=== PATIENT | male | born 1935 | race Caucasian/White ===

== ENCOUNTER 2018-04-18 19:43 | Emergency (ER) | payer MEDICARE, OTHER ==
[~2018-04-18] VITALS: Ht 182.9 cm; Wt 88.6 kg
[~2018-04-18 19:43] MED LIST: ACET-784 PO; ASPI81 PO; DSS100 PO; MOM30 PO; MORP2CAR IM; PANT40TA25 PO; PERCT PO; TAMS0.4C32 PO
[2018-04-18] MEDS ORDERED: OMEP20 PO (20:34)
[2018-04-18] MEDS ORDERED: IBUP-2070 PO (20:34)
[2018-04-18] MEDS ORDERED: FINA5TAB41 PO (20:34)
[2018-04-18 21:36] LABS: APPEARANCE,URINE TURBID (CLEAR); GLUCOSE, URINE (UA) NEGATIVE (NEGATIVE); KETONES,URINE TRACE mg/dL (NEGATIVE); LEUKOCYTE ESTERASE ,URINE LARGE (NEGATIVE); NITRATE,URINE NEGATIVE (NEGATIVE); OCCULT BLOOD,URINE MODERATE (NEGATIVE); PH,URINE 7.5 (5.0-8.0); PROTEIN,URINE SEE CONFIRM (NEGATIVE)
[2018-04-18 22:06] LABS: BILIRUBIN,URINE PRELIM. POSITIVE (NEGATIVE)
[2018-04-18 22:08] LABS: SULFOSALICYLIC ACID,URINE 4+ (Negative)
[2018-04-18 22:09] LABS: BACTERIA,URINE Many /HPF (None Seen); WBC,URINE >100 /HPF (0-5)
[2018-04-18 22:11] LABS: SQUAMOUS EPITHELIAL CELL,UR Rare /LPF (None Seen); TRIPLE PHOSPHATE CRYSTAL,UR Moderate /LPF (None Seen)
[2018-04-18] MEDS ORDERED: LIDOCAINE/PF 1% 2 ML VIAL IM ONE (22:15)
[2018-04-18] MEDS ORDERED: CefTRIAXone SODIUM 1 GM/VIAL IM ONE (22:15)
[2018-04-19] VITALS: BP 124/74
== END 2018-04-19 00:20 | disposition home or self-care (01) ==
LOC: EMS 19:47
DX: N39.0 Urinary tract infection, site not specified (principal); I11.0 Hypertensive heart disease with heart failure; I50.9 Heart failure, unspecified; Z87.891 Personal history of nicotine dependence; Z96.643 Presence of artificial hip joint, bilateral
CPT/HCPCS: 51705; 81001; 87086; 96372; 99284; J0696; J3490

== ENCOUNTER 2018-04-21 05:58 | Emergency (ER) | payer MEDICARE, OTHER ==
[~2018-04-21] VITALS: Ht 188 cm; Wt 86.4 kg
[~2018-04-21 05:58] MED LIST changes: -ACET-784 PO; -ASPI81 PO; -DSS100 PO; +FINA5TAB41 PO; +IBUP-2070 PO; -MOM30 PO; -MORP2CAR IM; +OMEP20 PO; -PANT40TA25 PO; -PERCT PO
[2018-04-21 06:09] VITALS: BP 110/76
[2018-04-21] MEDS ORDERED: LEVO250 PO (06:19)
== END 2018-04-21 07:15 | disposition home or self-care (01) ==
LOC: EMS 05:58
DX: T83.9XXA Unspecified complication of genitourinary prosthetic device, implant and graft, initial encounter (principal); I48.91 Unspecified atrial fibrillation; I11.0 Hypertensive heart disease with heart failure; I50.9 Heart failure, unspecified; E78.5 Hyperlipidemia, unspecified; D69.6 Thrombocytopenia, unspecified; Z87.891 Personal history of nicotine dependence; Z79.899 Other long term (current) drug therapy; Z96.643 Presence of artificial hip joint, bilateral
CPT/HCPCS: 99283

== ENCOUNTER 2018-05-07 08:09 | Emergency (ER) | payer MEDICARE, OTHER ==
[~2018-05-07] VITALS: Ht 188 cm; Wt 86.4 kg
[~2018-05-07 08:09] MED LIST changes: +LEVO250 PO
[2018-05-07] MEDS ORDERED: METF-960 PO (08:28)
[2018-05-07] MEDS ORDERED: HYDR-4061 PO (08:33)
[2018-05-07] MEDS ORDERED: METO-558 PO (08:33)
[2018-05-07] MEDS ORDERED: DOCU250C91 PO (08:33)
[2018-05-07] MEDS ORDERED: SENN-175 PO (08:33)
[2018-05-07 09:22] LABS: BASOPHILS % (AUTO) 1.3 % (0.0-2.0); EOSINOPHILS % (AUTO) 3.9 % (1.0-6.0); HEMATOCRIT 36.2 % (41-53); HEMOGLOBIN 12.4 g/dL (13.5-17.5); LYMPHOCYTES # (AUTO) 0.8 K/uL (1.0-4.8); LYMPHOCYTES % (AUTO) 25.8 % (22.0-44.0); MEAN CORPUSCULAR HEMOGLOBIN 32.6 pg (26.0-34.0); MEAN CORPUSCULAR HGB CONC 34.4 G/dL (31.0-37.0); MEAN CORPUSCULAR VOLUME 95 fL (80-100); MONOCYTES # (AUTO) 0.3 K/uL (0.1-1.0); MONOCYTES % (AUTO) 8.4 % (2.0-9.0); NEUTROPHILS % (AUTO) 60.6 % (40.0-70.0); PLATELET COUNT (AUTO) 92 K/uL (150-450); RED BLOOD CELL COUNT(AUTO) 3.81 MIL/uL (4.50-5.90); RED CELL DISTRIBUTION WIDTH 14.8 % (11.5-14.5)
[2018-05-07 09:22] LABS: APPEARANCE,URINE CLEAR (CLEAR); BILIRUBIN,URINE NEGATIVE (NEGATIVE); GLUCOSE, URINE (UA) NEGATIVE (NEGATIVE); KETONES,URINE NEGATIVE (NEGATIVE); LEUKOCYTE ESTERASE ,URINE MODERATE (NEGATIVE); NITRATE,URINE NEGATIVE (NEGATIVE); OCCULT BLOOD,URINE SMALL (NEGATIVE); PROTEIN,URINE NEGATIVE (NEGATIVE); UROBILINOGEN,URINE 0.2 mg/dL (<=1.0)
[2018-05-07 09:31] LABS: ANION GAP 6 mmol/L (8-16); CALCIUM, TOTAL 8.5 mg/dL (8.8-10.5); CARBON DIOXIDE 28 mmol/L (22-29); CHLORIDE 105 mmol/L (98-107); CREATININE 0.79 mg/dL (0.60-1.30); GLUCOSE,RANDOM 84 mg/dL (70-110); POTASSIUM 4.2 mmol/L (3.5-5.1); SODIUM SERUM 139 mmol/L (136-145); UREA NITROGEN, BLOOD 17 mg/dL (7-18)
[2018-05-07 09:34] LABS: GLOMERULAR FILTR. RATE CALC > 60 mL/min (>60)
[2018-05-07 09:37] LABS: ALANINE AMINOTRANSFERASE 16 U/L (12-78); ALBUMIN 3.3 g/dL (3.4-5.0); ALKALINE PHOSPHATASE 55 U/L (46-116); ASPARTATE AMINOTRANSFERASE 18 U/L (15-37); BILIRUBIN,TOTAL 0.7 mg/dL (0.1-1.0); LIPASE 83 U/L (73-393); TOTAL PROTEIN, SERUM 6.8 g/dL (6.4-8.2)
[2018-05-07 09:49] LABS: BACTERIA,URINE Rare /HPF (None Seen); RBC,URINE 0-2 /HPF (0-2); SQUAMOUS EPITHELIAL CELL,UR Rare /LPF (None Seen)
[2018-05-07 10:20] VITALS: BP 142/83
[2018-05-07] MEDS ORDERED: CefTRIAXone SODIUM 1 GM/VIAL IM ONE (10:30)
[2018-05-07] MEDS ORDERED: LIDOCAINE/PF 1% 2 ML VIAL IM ONE (10:30)
== END 2018-05-07 11:20 | disposition home or self-care (01) ==
LOC: EMS 08:10
DX: N39.0 Urinary tract infection, site not specified (principal); I11.0 Hypertensive heart disease with heart failure; I50.9 Heart failure, unspecified; I48.91 Unspecified atrial fibrillation; F03.90 Unspecified dementia, unspecified severity, without behavioral disturbance, psychotic disturbance, mood disturbance, and anxiety; E78.5 Hyperlipidemia, unspecified; D69.6 Thrombocytopenia, unspecified; Z87.891 Personal history of nicotine dependence; Z79.84 Long term (current) use of oral hypoglycemic drugs; Z79.899 Other long term (current) drug therapy; Z96.643 Presence of artificial hip joint, bilateral
CPT/HCPCS: 36415; 80053; 81001; 83690; 85025; 96372; 99285; J0696; J3490

== ENCOUNTER 2018-05-09 06:07 | Emergency (ER) | payer MEDICARE, OTHER ==
[~2018-05-09] VITALS: Ht 182.9 cm; Wt 59.1 kg
[~2018-05-09 06:07] MED LIST changes: +DOCU250C91 PO; +HYDR-4061 PO; +METF-960 PO; +METO-558 PO; +SENN-175 PO
[2018-05-09 06:34] LABS: GLUCOSE,POINT OF CARE 77 MG/DL (70-110)
[2018-05-09 06:57] LABS: BASOPHILS % (AUTO) 0.8 % (0.0-2.0); EOSINOPHILS % (AUTO) 5.6 % (1.0-6.0); HEMATOCRIT 36.1 % (41-53); HEMOGLOBIN 12.4 g/dL (13.5-17.5); LYMPHOCYTES # (AUTO) 0.8 K/uL (1.0-4.8); MEAN CORPUSCULAR HEMOGLOBIN 33.2 pg (26.0-34.0); MEAN CORPUSCULAR HGB CONC 34.3 G/dL (31.0-37.0); MEAN CORPUSCULAR VOLUME 97 fL (80-100); MONOCYTES # (AUTO) 0.3 K/uL (0.1-1.0); MONOCYTES % (AUTO) 9.8 % (2.0-9.0); NEUTROPHILS # (AUTO) 1.9 K/uL (1.8-7.7); NEUTROPHILS % (AUTO) 57.8 % (40.0-70.0); PLATELET COUNT (AUTO) 95 K/uL (150-450); RED BLOOD CELL COUNT(AUTO) 3.73 MIL/uL (4.50-5.90)
[2018-05-09 07:08] LABS: ANION GAP 9 mmol/L (8-16); CALCIUM, TOTAL 8.1 mg/dL (8.8-10.5); CARBON DIOXIDE 27 mmol/L (22-29); CHLORIDE 105 mmol/L (98-107); CREATININE 0.74 mg/dL (0.60-1.30); GLUCOSE,RANDOM 85 mg/dL (70-110); POTASSIUM 3.7 mmol/L (3.5-5.1); SODIUM SERUM 141 mmol/L (136-145); UREA NITROGEN, BLOOD 18 mg/dL (7-18)
[2018-05-09 07:10] LABS: GLOMERULAR FILTR. RATE CALC > 60 mL/min (>60)
[2018-05-09 07:13] LABS: ALANINE AMINOTRANSFERASE 17 U/L (12-78); ALBUMIN 3.2 g/dL (3.4-5.0); ALKALINE PHOSPHATASE 55 U/L (46-116); ASPARTATE AMINOTRANSFERASE 19 U/L (15-37); BILIRUBIN,TOTAL 0.7 mg/dL (0.1-1.0); TOTAL PROTEIN, SERUM 6.6 g/dL (6.4-8.2)
[2018-05-09] MEDS ORDERED: CefTRIAXone SODIUM 1 GM in DEXTROSE 5%-WATER 10 ML IV ONE (07:30)
[2018-05-09 08:25] VITALS: BP 126/86
== END 2018-05-09 09:07 | disposition home or self-care (01) ==
LOC: EMS 06:08
DX: N39.0 Urinary tract infection, site not specified (principal); R53.1 Weakness; I11.0 Hypertensive heart disease with heart failure; I50.9 Heart failure, unspecified; I48.91 Unspecified atrial fibrillation; K21.9 Gastro-esophageal reflux disease without esophagitis; Z23 Encounter for immunization; Z79.84 Long term (current) use of oral hypoglycemic drugs; Z87.891 Personal history of nicotine dependence
CPT/HCPCS: 36415; 71045; 80053; 82962; 85025; 90471; 90686; 93005; 96374; 99285; J0696; J7060

== ENCOUNTER 2018-05-10 05:07 | Emergency (ER) | payer MEDICARE, OTHER ==
[~2018-05-10] VITALS: Ht 185.4 cm; Wt 95.5 kg
[2018-05-10 05:24] LABS: GLUCOSE,POINT OF CARE 85 MG/DL (70-110)
[2018-05-10 05:33] VITALS: BP 134/92
== END 2018-05-10 06:38 | disposition home or self-care (01) ==
LOC: EMS 05:07
DX: T83.091A Other mechanical complication of indwelling urethral catheter, initial encounter (principal); I11.0 Hypertensive heart disease with heart failure; I50.9 Heart failure, unspecified; K21.9 Gastro-esophageal reflux disease without esophagitis; I48.91 Unspecified atrial fibrillation; Z87.891 Personal history of nicotine dependence
CPT/HCPCS: 51702

== ENCOUNTER 2018-08-02 21:42 | Emergency (ER) | payer MEDICARE, OTHER ==
[~2018-08-02] VITALS: Ht 188 cm; Wt 79.5 kg
[~2018-08-02 21:42] MED LIST changes: +FLUT16H NASAL; +GABA-531 PO; -IBUP-2070 PO; -LEVO250 PO; -METF-960 PO; -METO-558 PO; -OMEP20 PO; +PANT40TA25 PO; -SENN-175 PO; +SULF1TAB42 PO
[2018-08-02] MEDS ORDERED: BACITRACIN 0.9 GM PACKET OINTMENT TP ONE (23:00)
[2018-08-02 23:25] VITALS: BP 140/83
[2018-08-03 08:51] LABS: GLUCOSE,POINT OF CARE 92 MG/DL (70-110)
== END 2018-08-02 23:47 | disposition home or self-care (01) ==
LOC: EMS 21:44
DX: S50.811A Abrasion of right forearm, initial encounter (principal); Z87.891 Personal history of nicotine dependence; I11.0 Hypertensive heart disease with heart failure; I50.9 Heart failure, unspecified; E78.5 Hyperlipidemia, unspecified; F03.90 Unspecified dementia, unspecified severity, without behavioral disturbance, psychotic disturbance, mood disturbance, and anxiety; K21.9 Gastro-esophageal reflux disease without esophagitis; Z79.899 Other long term (current) drug therapy; W01.190A Fall on same level from slipping, tripping and stumbling with subsequent striking against furniture, initial encounter; Y93.89 Activity, other specified; Y92.89 Other specified places as the place of occurrence of the external cause; Y99.8 Other external cause status

== ENCOUNTER 2018-10-10 12:39 | Inpatient (IN) | payer MEDICARE, OTHER ==
[~2018-10-10] VITALS: Ht 188 cm; Wt 96.5 kg
[~2018-10-10 12:39] MED LIST changes: -SULF1TAB42 PO
[2018-10-10] MEDS ORDERED: 0.9% SODIUM CHLORIDE 10 ML SYRINGE IVP PRN ×2 (14:00→15:30)
[2018-10-10 14:23] LABS: BASOPHILS % (AUTO) 0.9 % (0.0-2.0); EOSINOPHILS % (AUTO) 3.6 % (1.0-6.0); HEMATOCRIT 36.1 % (41-53); LYMPHOCYTES # (AUTO) 1.1 K/uL (1.0-4.8); LYMPHOCYTES % (AUTO) 26.9 % (22.0-44.0); MEAN CORPUSCULAR HEMOGLOBIN 32.9 pg (26.0-34.0); MEAN CORPUSCULAR HGB CONC 33.4 G/dL (31.0-37.0); MEAN CORPUSCULAR VOLUME 99 fL (80-100); MONOCYTES # (AUTO) 0.2 K/uL (0.1-1.0); NEUTROPHILS # (AUTO) 2.5 K/uL (1.8-7.7); NEUTROPHILS % (AUTO) 62.6 % (40.0-70.0); PLATELET COUNT (AUTO) 116 K/uL (150-450); RED BLOOD CELL COUNT(AUTO) 3.66 MIL/uL (4.50-5.90); RED CELL DISTRIBUTION WIDTH 13.7 % (11.5-14.5)
[2018-10-10 14:32] LABS: ANION GAP 7 mmol/L (8-16); CALCIUM, TOTAL 8.8 mg/dL (8.8-10.5); CARBON DIOXIDE 28 mmol/L (22-29); CHLORIDE 105 mmol/L (98-107); CREATININE 0.69 mg/dL (0.60-1.30); GLOMERULAR FILTR. RATE CALC > 60 mL/min (>60); GLUCOSE,RANDOM 93 mg/dL (70-110); POTASSIUM 4.4 mmol/L (3.5-5.1); SODIUM SERUM 140 mmol/L (136-145); UREA NITROGEN, BLOOD 27 mg/dL (7-18)
[2018-10-10 14:33] LABS: INR 1.1 (0.9-1.1); PROTHROMBIN TIME 11.4 SEC (9.4-11.6)
[2018-10-10 14:37] LABS: ALANINE AMINOTRANSFERASE 18 U/L (12-78); ALBUMIN 3.3 g/dL (3.4-5.0); ALKALINE PHOSPHATASE 84 U/L (46-116); ASPARTATE AMINOTRANSFERASE 22 U/L (15-37); BILIRUBIN,TOTAL 0.7 mg/dL (0.1-1.0); TOTAL PROTEIN, SERUM 6.8 g/dL (6.4-8.2)
[2018-10-10 14:39] LABS: APPEARANCE,URINE CLOUDY (CLEAR); BILIRUBIN,URINE NEGATIVE (NEGATIVE); GLUCOSE, URINE (UA) NEGATIVE (NEGATIVE); KETONES,URINE TRACE mg/dL (NEGATIVE); LEUKOCYTE ESTERASE ,URINE MODERATE (NEGATIVE); NITRATE,URINE NEGATIVE (NEGATIVE); OCCULT BLOOD,URINE SMALL (NEGATIVE); PH,URINE 7.5 (5.0-8.0); PROTEIN,URINE SEE CONFIRM (NEGATIVE)
[2018-10-10 14:40] LABS: LACTIC ACID 0.9 mmol/L (0.4-2.0)
[2018-10-10 14:47] LABS: SULFOSALICYLIC ACID,URINE 2+ (Negative)
[2018-10-10 14:48] LABS: BACTERIA,URINE Many /HPF (None Seen); SQUAMOUS EPITHELIAL CELL,UR Moderate /LPF (None Seen); TRIPLE PHOSPHATE CRYSTAL,UR Many /LPF (None Seen)
[2018-10-10] MEDS ORDERED: CEPHALEXIN MONOHYDRATE 500 MG CAPSULE PO ONE (15:00)
[2018-10-10] MEDS ORDERED: CefTRIAXone 1 GM/DEXTROSE 50 ML IV ONE (15:30)
[2018-10-10] MEDS ORDERED: ACETAMINOPHEN 325 MG TABLET PO PRN ×2 (15:30→20:45)
[2018-10-10] MEDS ORDERED: ONDANSETRON HCL 4 MG/2 ML VIAL IVP PRN ×2 (15:30→20:45)
[2018-10-10] MEDS ORDERED: AZITHROMYCIN 500 MG/NS 250 ML IV ONE (15:30)
[2018-10-10] MEDS ORDERED: HYDROCODONE/ACETAMINOPHEN 5-325 MG TABLET PO ONE ×2 (15:30→19:30)
[2018-10-10 20:35] VITALS: BP 112/73
[2018-10-10] MEDS ORDERED: ALBUTEROL SULFATE 2.5 MG/0.5 ML NEB SOLUTION NEB PRN (20:45)
[2018-10-10] MEDS ORDERED: BISACODYL 10 MG RECTAL RECTAL SUPPOSITORY PR PRN (20:45)
[2018-10-10] MEDS ORDERED: MAGNESIUM HYDROXIDE SUSPENSION 30 ML UDCUP PO PRN (20:45)
[2018-10-10] MEDS ORDERED: HYDROCODONE/ACETAMINOPHEN 5-325 MG TABLET PO PRN (20:45)
[2018-10-10] MEDS ORDERED: IPRATROPIUM BROMIDE 0.5 MG/2.5 ML NEB SOLUTION NEB PRN (20:45)
[2018-10-10] MEDS ORDERED: ZOLPIDEM TARTRATE 5 MG TABLET PO PRN (20:45)
[2018-10-10] MEDS ORDERED: SODIUM CHLORIDE 0.9% 500 ML IV ONE (22:17)
[2018-10-10] MEDS: CefTRIAXone 1 GM/DEXTROSE 50 ML IV SCH (22:29)
[2018-10-10] MEDS: HEPARIN SODIUM,PORCINE 5,000 UNITS/ML VIAL SQ SCH (22:36)
[2018-10-10] MEDS: GABAPENTIN 300 MG CAPSULE PO SCH (22:36)
[2018-10-10] MEDS: HYDROCODONE/ACETAMINOPHEN 5-325 MG TABLET PO PRN (22:36)
[2018-10-10] MEDS: TAMSULOSIN HCL 0.4 MG CAPSULE PO SCH (22:36)
[2018-10-10] MEDS: DOCUSATE SODIUM 100 MG CAPSULE PO SCH (22:37)
[2018-10-10] MEDS: FLUTICASONE PROPIONATE 50 MCG/SPRAY 16 GM NASAL SPRAY NASAL SCH (22:43)
[2018-10-10] MEDS: AZITHROMYCIN 500 MG/NS 250 ML IV SCH (23:19)
[2018-10-10 23:46] VITALS: BP 106/59
[2018-10-11] MEDS: MORPHINE SULFATE 2 MG/ML SYRINGE IVP PRN ×3 (01:14→16:51)
[2018-10-11 05:34] VITALS: BP 109/74
[2018-10-11 06:02] LABS: BASOPHILS % (AUTO) 0.9 % (0.0-2.0); HEMATOCRIT 32.2 % (41-53); LYMPHOCYTES # (AUTO) 1.2 K/uL (1.0-4.8); LYMPHOCYTES % (AUTO) 35.3 % (22.0-44.0); MEAN CORPUSCULAR VOLUME 97 fL (80-100); MONOCYTES # (AUTO) 0.3 K/uL (0.1-1.0); NEUTROPHILS # (AUTO) 1.7 K/uL (1.8-7.7); NEUTROPHILS % (AUTO) 50.8 % (40.0-70.0); PLATELET COUNT (AUTO) 107 K/uL (150-450); RED BLOOD CELL COUNT(AUTO) 3.32 MIL/uL (4.50-5.90); RED CELL DISTRIBUTION WIDTH 13.4 % (11.5-14.5)
[2018-10-11 07:06] LABS: ALANINE AMINOTRANSFERASE 15 U/L (12-78); ALBUMIN 2.7 g/dL (3.4-5.0); ALKALINE PHOSPHATASE 71 U/L (46-116); ANION GAP 8 mmol/L (8-16); ASPARTATE AMINOTRANSFERASE 19 U/L (15-37); BILIRUBIN,TOTAL 0.7 mg/dL (0.1-1.0); CALCIUM, TOTAL 8.3 mg/dL (8.8-10.5); CARBON DIOXIDE 25 mmol/L (22-29); CHLORIDE 105 mmol/L (98-107); GLUCOSE,RANDOM 84 mg/dL (70-110); POTASSIUM 4.1 mmol/L (3.5-5.1); SODIUM SERUM 138 mmol/L (136-145); TOTAL PROTEIN, SERUM 5.8 g/dL (6.4-8.2); UREA NITROGEN, BLOOD 23 mg/dL (7-18)
[2018-10-11 07:07] LABS: GLOMERULAR FILTR. RATE CALC > 60 mL/min (>60)
[2018-10-11] MEDS: DOCUSATE SODIUM 100 MG CAPSULE PO SCH (09:00)
[2018-10-11] MEDS ORDERED: PANTOPRAZOLE SODIUM 40 MG/VIAL IVP SCH (09:00)
[2018-10-11] MEDS: PANTOPRAZOLE SODIUM 40 MG DR TABLET PO SCH (09:00)
[2018-10-11 09:01] VITALS: BP 109/75
[2018-10-11] MEDS: HEPARIN SODIUM,PORCINE 5,000 UNITS/ML VIAL SQ SCH ×3 (09:18→23:29)
[2018-10-11] MEDS: FLUTICASONE PROPIONATE 50 MCG/SPRAY 16 GM NASAL SPRAY NASAL SCH ×2 (09:18→20:01)
[2018-10-11] MEDS: DOCUSATE SODIUM 250 MG CAPSULE PO SCH (09:19)
[2018-10-11] MEDS: FINASTERIDE 5 MG TABLET PO SCH (09:20)
[2018-10-11] MEDS: TAMSULOSIN HCL 0.4 MG CAPSULE PO SCH ×2 (09:21→20:01)
[2018-10-11 12:30] VITALS: BP 128/90
[2018-10-11 15:30] VITALS: BP 133/98
[2018-10-11] MEDS: GABAPENTIN 300 MG CAPSULE PO SCH (20:01)
[2018-10-11] MEDS: CefTRIAXone 1 GM/DEXTROSE 50 ML IV SCH (20:02)
[2018-10-11 20:04] LABS: APPEARANCE,URINE CLOUDY (CLEAR); BILIRUBIN,URINE NEGATIVE (NEGATIVE); GLUCOSE, URINE (UA) NEGATIVE (NEGATIVE); KETONES,URINE NEGATIVE (NEGATIVE); LEUKOCYTE ESTERASE ,URINE LARGE (NEGATIVE); NITRATE,URINE NEGATIVE (NEGATIVE); OCCULT BLOOD,URINE TRACE (NEGATIVE); PH,URINE 7.5 (5.0-8.0); PROTEIN,URINE NEGATIVE (NEGATIVE); UROBILINOGEN,URINE 0.2 mg/dL (<=1.0)
[2018-10-11 20:13] LABS: BACTERIA,URINE Few /HPF (None Seen); SQUAMOUS EPITHELIAL CELL,UR Few /LPF (None Seen); WBC,URINE 26-50 /HPF (0-5)
[2018-10-11] MEDS: AZITHROMYCIN 500 MG/NS 250 ML IV SCH (21:15)
[2018-10-11] MEDS: HYDROCODONE/ACETAMINOPHEN 5-325 MG TABLET PO PRN (22:32)
[2018-10-12] VITALS (7 sets, daily range): BP systolic 108–131; BP diastolic 71–79
[2018-10-12 06:26] LABS: BASOPHILS % (AUTO) 0.8 % (0.0-2.0); EOSINOPHILS % (AUTO) 5.2 % (1.0-6.0); HEMATOCRIT 32.5 % (41-53); HEMOGLOBIN 10.9 g/dL (13.5-17.5); LYMPHOCYTES # (AUTO) 1.2 K/uL (1.0-4.8); LYMPHOCYTES % (AUTO) 33.5 % (22.0-44.0); MEAN CORPUSCULAR HEMOGLOBIN 32.9 pg (26.0-34.0); MEAN CORPUSCULAR HGB CONC 33.7 G/dL (31.0-37.0); MEAN CORPUSCULAR VOLUME 98 fL (80-100); MONOCYTES # (AUTO) 0.3 K/uL (0.1-1.0); MONOCYTES % (AUTO) 8.6 % (2.0-9.0); NEUTROPHILS # (AUTO) 1.9 K/uL (1.8-7.7); NEUTROPHILS % (AUTO) 51.9 % (40.0-70.0); PLATELET COUNT (AUTO) 106 K/uL (150-450); RED BLOOD CELL COUNT(AUTO) 3.33 MIL/uL (4.50-5.90); RED CELL DISTRIBUTION WIDTH 13.4 % (11.5-14.5)
[2018-10-12 06:53] LABS: ALANINE AMINOTRANSFERASE 16 U/L (12-78); ALBUMIN 2.9 g/dL (3.4-5.0); ALKALINE PHOSPHATASE 74 U/L (46-116); ANION GAP 8 mmol/L (8-16); ASPARTATE AMINOTRANSFERASE 18 U/L (15-37); BILIRUBIN,TOTAL 0.4 mg/dL (0.1-1.0); CALCIUM, TOTAL 8.2 mg/dL (8.8-10.5); CARBON DIOXIDE 26 mmol/L (22-29); CHLORIDE 106 mmol/L (98-107); CREATININE 0.66 mg/dL (0.60-1.30); GLUCOSE,RANDOM 81 mg/dL (70-110); POTASSIUM 3.7 mmol/L (3.5-5.1); SODIUM SERUM 140 mmol/L (136-145); UREA NITROGEN, BLOOD 21 mg/dL (7-18)
[2018-10-12 06:56] LABS: GLOMERULAR FILTR. RATE CALC > 60 mL/min (>60)
[2018-10-12] MEDS: HEPARIN SODIUM,PORCINE 5,000 UNITS/ML VIAL SQ SCH ×2 (09:49→16:10)
[2018-10-12] MEDS: PANTOPRAZOLE SODIUM 40 MG DR TABLET PO SCH (09:49)
[2018-10-12] MEDS: FINASTERIDE 5 MG TABLET PO SCH (09:49)
[2018-10-12] MEDS: DOCUSATE SODIUM 250 MG CAPSULE PO SCH (09:49)
[2018-10-12] MEDS: FLUTICASONE PROPIONATE 50 MCG/SPRAY 16 GM NASAL SPRAY NASAL SCH ×2 (09:49→20:36)
[2018-10-12] MEDS: TAMSULOSIN HCL 0.4 MG CAPSULE PO SCH ×2 (09:49→20:36)
[2018-10-12] MEDS: GABAPENTIN 300 MG CAPSULE PO SCH (20:36)
[2018-10-12] MEDS: CefTRIAXone 1 GM/DEXTROSE 50 ML IV SCH (20:36)
[2018-10-12] MEDS: AZITHROMYCIN 500 MG/NS 250 ML IV SCH (22:04)
[2018-10-13] MEDS: HEPARIN SODIUM,PORCINE 5,000 UNITS/ML VIAL SQ SCH ×2 (00:17→09:09)
[2018-10-13 04:23] VITALS: BP 117/73
[2018-10-13 05:33] LABS: BASOPHILS % (AUTO) 1.1 % (0.0-2.0); HEMATOCRIT 33.6 % (41-53); HEMOGLOBIN 11.2 g/dL (13.5-17.5); LYMPHOCYTES # (AUTO) 1.2 K/uL (1.0-4.8); LYMPHOCYTES % (AUTO) 30.4 % (22.0-44.0); MEAN CORPUSCULAR HEMOGLOBIN 32.8 pg (26.0-34.0); MEAN CORPUSCULAR HGB CONC 33.5 G/dL (31.0-37.0); MEAN CORPUSCULAR VOLUME 98 fL (80-100); MONOCYTES # (AUTO) 0.3 K/uL (0.1-1.0); MONOCYTES % (AUTO) 7.8 % (2.0-9.0); NEUTROPHILS # (AUTO) 2.2 K/uL (1.8-7.7); NEUTROPHILS % (AUTO) 56.7 % (40.0-70.0); PLATELET COUNT (AUTO) 103 K/uL (150-450); RED BLOOD CELL COUNT(AUTO) 3.43 MIL/uL (4.50-5.90); RED CELL DISTRIBUTION WIDTH 13.9 % (11.5-14.5)
[2018-10-13 05:49] LABS: ALANINE AMINOTRANSFERASE 15 U/L (12-78); ALBUMIN 2.9 g/dL (3.4-5.0); ALKALINE PHOSPHATASE 78 U/L (46-116); ANION GAP 9 mmol/L (8-16); ASPARTATE AMINOTRANSFERASE 17 U/L (15-37); BILIRUBIN,TOTAL 0.4 mg/dL (0.1-1.0); CALCIUM, TOTAL 8.4 mg/dL (8.8-10.5); CARBON DIOXIDE 25 mmol/L (22-29); CHLORIDE 105 mmol/L (98-107); CREATININE 0.58 mg/dL (0.60-1.30); GLOMERULAR FILTR. RATE CALC > 60 mL/min (>60); GLUCOSE,RANDOM 94 mg/dL (70-110); POTASSIUM 4.1 mmol/L (3.5-5.1); SODIUM SERUM 139 mmol/L (136-145); TOTAL PROTEIN, SERUM 6.1 g/dL (6.4-8.2); UREA NITROGEN, BLOOD 19 mg/dL (7-18)
[2018-10-13 07:32] VITALS: BP 114/67
[2018-10-13] MEDS: FINASTERIDE 5 MG TABLET PO SCH (09:09)
[2018-10-13] MEDS: FLUTICASONE PROPIONATE 50 MCG/SPRAY 16 GM NASAL SPRAY NASAL SCH (09:09)
[2018-10-13] MEDS: DOCUSATE SODIUM 250 MG CAPSULE PO SCH (09:09)
[2018-10-13] MEDS: TAMSULOSIN HCL 0.4 MG CAPSULE PO SCH (09:09)
[2018-10-13] MEDS: PANTOPRAZOLE SODIUM 40 MG DR TABLET PO SCH (09:10)
[2018-10-13 11:25] VITALS: BP 107/64
[2018-10-13 16:14] VITALS: BP 115/66
== END 2018-10-13 17:35 | disposition short-term general hospital (02) | DRG 689 ==
LOC: EMS 12:39 → 5N 18:23
PROVIDERS: ADMIT Hospitalist; ATTEND Hospitalist
DX: N39.0 Urinary tract infection, site not specified (principal); J18.9 Pneumonia, unspecified organism; J90 Pleural effusion, not elsewhere classified; F03.90 Unspecified dementia, unspecified severity, without behavioral disturbance, psychotic disturbance, mood disturbance, and anxiety; N40.0 Benign prostatic hyperplasia without lower urinary tract symptoms; E78.5 Hyperlipidemia, unspecified; I11.0 Hypertensive heart disease with heart failure; I48.91 Unspecified atrial fibrillation; I50.9 Heart failure, unspecified; K21.9 Gastro-esophageal reflux disease without esophagitis; Z53.20 Procedure and treatment not carried out because of patient's decision for unspecified reasons; Z87.891 Personal history of nicotine dependence; Z96.643 Presence of artificial hip joint, bilateral
CPT/HCPCS: 83605; 87040; 87086; 93005; 96365; 97116; 97162; 97530; C9113; G0378; J0456; J0696; J1644; J2270; J7040

== ENCOUNTER 2019-04-03 09:28 | Inpatient (IN) | payer MEDICARE, OTHER ==
[~2019-04-03] VITALS: Ht 188 cm; Wt 82.5 kg
[2019-04-03] MEDS ORDERED: ONDANSETRON HCL 4 MG/2 ML VIAL IVP ONE (10:15)
[2019-04-03] MEDS ORDERED: FentaNYL CITRATE-PF 100 MCG/2 ML VIAL IVP ONE ×2 (10:15→12:30)
[2019-04-03 10:54] LABS: BASOPHILS % (AUTO) 0.8 % (0.0-2.0); EOSINOPHILS % (AUTO) 1.6 % (1.0-6.0); HEMATOCRIT 40.4 % (41-53); HEMOGLOBIN 13.2 g/dL (13.5-17.5); LYMPHOCYTES % (AUTO) 21.4 % (22.0-44.0); MEAN CORPUSCULAR HEMOGLOBIN 33.6 pg (26.0-34.0); MEAN CORPUSCULAR HGB CONC 32.8 G/dL (31.0-37.0); MEAN CORPUSCULAR VOLUME 103 fL (80-100); MONOCYTES # (AUTO) 0.3 K/uL (0.1-1.0); MONOCYTES % (AUTO) 6.3 % (2.0-9.0); NEUTROPHILS # (AUTO) 3.3 K/uL (1.8-7.7); NEUTROPHILS % (AUTO) 69.9 % (40.0-70.0); RED BLOOD CELL COUNT(AUTO) 3.94 MIL/uL (4.50-5.90); RED CELL DISTRIBUTION WIDTH 14.3 % (11.5-14.5)
[2019-04-03 11:08] LABS: PROTHROMBIN TIME 10.9 SEC (9.4-11.6)
[2019-04-03 11:15] LABS: ALANINE AMINOTRANSFERASE 13 U/L (12-78); ALBUMIN 3.5 g/dL (3.4-5.0); ALKALINE PHOSPHATASE 49 U/L (46-116); ANION GAP 9 mmol/L (8-16); ASPARTATE AMINOTRANSFERASE 14 U/L (15-37); BILIRUBIN,TOTAL 0.8 mg/dL (0.1-1.0); CALCIUM, TOTAL 8.4 mg/dL (8.8-10.5); CARBON DIOXIDE 24 mmol/L (22-29); CHLORIDE 107 mmol/L (98-107); CREATININE 0.71 mg/dL (0.60-1.30); GLUCOSE,RANDOM 92 mg/dL (70-110); LIPASE 73 U/L (73-393); POTASSIUM 3.7 mmol/L (3.5-5.1); SODIUM SERUM 140 mmol/L (136-145); TOTAL PROTEIN, SERUM 6.6 g/dL (6.4-8.2); UREA NITROGEN, BLOOD 23 mg/dL (7-18)
[2019-04-03] MEDS ORDERED: OXYGEN THERAPY IH SCH (11:15)
[2019-04-03] MEDS ORDERED: LORazepam 2 MG/ML VIAL IVP ONE (11:15)
[2019-04-03 11:21] LABS: GLOMERULAR FILTR. RATE CALC > 60 mL/min (>60)
[2019-04-03 11:29] LABS: PLATELET COUNT (AUTO) 89 K/uL (150-450)
[2019-04-03 11:30] LABS: B-TYPE NATRIURETIC PEPTIDE 191 pg/mL (0-100)
[2019-04-03] MEDS ORDERED: ETOMIDATE 2 MG/ML 10 ML VIAL IVP ONE (12:00)
[2019-04-03] MEDS ORDERED: EPHEDrine SULFATE 50 MG/ML VIAL IM ONE (12:00)
[2019-04-03] MEDS ORDERED: PROPOFOL 1% 20 ML VIAL IVP ONE ×2 (12:00→14:30)
[2019-04-03] MEDS ORDERED: SUCCINYLCHOLINE CHLORIDE 20 MG/ML 10 ML VIAL IVP ONE ×2 (12:00→14:30)
[2019-04-03] MEDS ORDERED: LABETALOL HCL 5 MG/ML 20 ML VIAL IVP ONE (12:00)
[2019-04-03] MEDS ORDERED: 0.9% SODIUM CHLORIDE 10 ML VIAL IVP ONE (12:00)
[2019-04-03 12:19] LABS: LACTIC ACID 0.8 mmol/L (0.4-2.0)
[2019-04-03] MEDS ORDERED: KETAMINE HCL 50 MG/ML 10 ML VIAL IVP ONE (12:45)
[2019-04-03] MEDS ORDERED: EPHEDrine SULFATE 50 MG/ML VIAL IVP ONE (14:30)
[2019-04-03 14:38] LABS: APPEARANCE,URINE TURBID (CLEAR); BILIRUBIN,URINE NEGATIVE (NEGATIVE); GLUCOSE, URINE (UA) NEGATIVE (NEGATIVE); KETONES,URINE NEGATIVE (NEGATIVE); LEUKOCYTE ESTERASE ,URINE LARGE (NEGATIVE); NITRATE,URINE NEGATIVE (NEGATIVE); OCCULT BLOOD,URINE LARGE (NEGATIVE); PH,URINE 6.5 (5.0-8.0); PROTEIN,URINE POS 1+ (NEGATIVE)
[2019-04-03 15:00] LABS: WBC,URINE >100 /HPF (0-5)
[2019-04-03 15:01] LABS: BACTERIA,URINE Many /HPF (None Seen); SQUAMOUS EPITHELIAL CELL,UR Moderate /LPF (None Seen)
[2019-04-03] MEDS ORDERED: CefTRIAXone 1 GM/DEXTROSE 50 ML IV ONE (15:15)
[2019-04-03] MEDS ORDERED: ZOLPIDEM TARTRATE 5 MG TABLET PO PRN (21:30)
[2019-04-03] MEDS ORDERED: ONDANSETRON HCL 4 MG/2 ML VIAL IVP PRN (21:30)
[2019-04-03] MEDS ORDERED: 0.9% SODIUM CHLORIDE 10 ML SYRINGE IVP PRN (21:30)
[2019-04-03] MEDS ORDERED: ACETAMINOPHEN 325 MG TABLET PO PRN (21:30)
[2019-04-03] MEDS ORDERED: ENOXAPARIN SODIUM 100 MG/ML PF SYRINGE SQ ONE (22:00)
[2019-04-03 22:20] VITALS: BP 94/60
[2019-04-03 23:13] VITALS: BP 107/82
[2019-04-03] MEDS: TAMSULOSIN HCL 0.4 MG CAPSULE PO SCH (23:14)
[2019-04-03] MEDS: GABAPENTIN 300 MG CAPSULE PO SCH (23:14)
[2019-04-03] MEDS: FLUTICASONE PROPIONATE 50 MCG/SPRAY 16 GM NASAL SPRAY NASAL SCH (23:14)
[2019-04-04 04:30] VITALS: BP 103/65
[2019-04-04 06:02] LABS: BASOPHILS % (AUTO) 0.7 % (0.0-2.0); EOSINOPHILS % (AUTO) 3.5 % (1.0-6.0); HEMATOCRIT 37.2 % (41-53); HEMOGLOBIN 12.4 g/dL (13.5-17.5); LYMPHOCYTES % (AUTO) 21.5 % (22.0-44.0); MEAN CORPUSCULAR HEMOGLOBIN 33.9 pg (26.0-34.0); MEAN CORPUSCULAR HGB CONC 33.2 G/dL (31.0-37.0); MEAN CORPUSCULAR VOLUME 102 fL (80-100); MONOCYTES # (AUTO) 0.4 K/uL (0.1-1.0); NEUTROPHILS % (AUTO) 66.3 % (40.0-70.0); RED BLOOD CELL COUNT(AUTO) 3.64 MIL/uL (4.50-5.90); RED CELL DISTRIBUTION WIDTH 13.8 % (11.5-14.5)
[2019-04-04 06:05] LABS: ANION GAP 8 mmol/L (8-16); CALCIUM, TOTAL 8.2 mg/dL (8.8-10.5); CARBON DIOXIDE 27 mmol/L (22-29); CHLORIDE 106 mmol/L (98-107); CREATININE 0.68 mg/dL (0.60-1.30); GLUCOSE,RANDOM 99 mg/dL (70-110); SODIUM SERUM 141 mmol/L (136-145)
[2019-04-04 06:07] LABS: GLOMERULAR FILTR. RATE CALC > 60 mL/min (>60)
[2019-04-04 06:23] LABS: UREA NITROGEN, BLOOD 17 mg/dL (7-18)
[2019-04-04 06:56] LABS: PLATELET COUNT (AUTO) 84 K/uL (150-450)
[2019-04-04] MEDS ORDERED: MAGNESIUM SULFATE 4 GM/WATER 100 ML IV PRN (08:00)
[2019-04-04] MEDS ORDERED: MAGNESIUM SULFATE 2 GM/WATER 50 ML IV PRN (08:00)
[2019-04-04 08:02] LABS: ALBUMIN 2.9 g/dL (3.4-5.0)
[2019-04-04 08:15] VITALS: BP 116/80
[2019-04-04] MEDS: FINASTERIDE 5 MG TABLET PO SCH (09:30)
[2019-04-04] MEDS: TAMSULOSIN HCL 0.4 MG CAPSULE PO SCH ×2 (09:30→20:18)
[2019-04-04] MEDS: ASPIRIN 81 MG EC TABLET PO SCH (09:30)
[2019-04-04] MEDS: PANTOPRAZOLE SODIUM 40 MG DR TABLET PO SCH (09:30)
[2019-04-04] MEDS: MAGNESIUM OXIDE 400 MG TABLET PO PRN ×3 (09:30→17:38)
[2019-04-04] MEDS: DOCUSATE SODIUM 100 MG CAPSULE PO SCH ×2 (09:30→20:18)
[2019-04-04] MEDS: FLUTICASONE PROPIONATE 50 MCG/SPRAY 16 GM NASAL SPRAY NASAL SCH ×2 (09:30→20:18)
[2019-04-04 11:49] VITALS: BP 125/76
[2019-04-04 15:36] VITALS: BP 122/74
[2019-04-04] MEDS: GABAPENTIN 300 MG CAPSULE PO SCH (20:18)
[2019-04-04 20:38] VITALS: BP 122/76
[2019-04-05 00:25] VITALS: BP 150/73
[2019-04-05 05:41] VITALS: BP 125/77
[2019-04-05 07:35] VITALS: BP 147/86
[2019-04-05] MEDS: PANTOPRAZOLE SODIUM 40 MG DR TABLET PO SCH (08:09)
[2019-04-05] MEDS: FINASTERIDE 5 MG TABLET PO SCH (08:09)
[2019-04-05] MEDS: FLUTICASONE PROPIONATE 50 MCG/SPRAY 16 GM NASAL SPRAY NASAL SCH (08:09)
[2019-04-05] MEDS: TAMSULOSIN HCL 0.4 MG CAPSULE PO SCH (08:09)
[2019-04-05] MEDS: DOCUSATE SODIUM 100 MG CAPSULE PO SCH (08:10)
[2019-04-05] MEDS: ASPIRIN 81 MG EC TABLET PO SCH (08:10)
[2019-04-05 16:33] VITALS: BP 145/84
== END 2019-04-05 18:11 | disposition home health service (06) | DRG 560 ==
LOC: EMS 09:30 → 4E 19:44
PROVIDERS: ADMIT Internal Medicine; ATTEND Internal Medicine
PROC: 0SWBXJZ Revision of Synthetic Substitute in Left Hip Joint, External Approach (ICD-10-PCS; principal; 2019-04-03)
DX: T84.021A Dislocation of internal left hip prosthesis, initial encounter (principal); N39.0 Urinary tract infection, site not specified; E44.0 Moderate protein-calorie malnutrition; I50.9 Heart failure, unspecified; K21.9 Gastro-esophageal reflux disease without esophagitis; F03.90 Unspecified dementia, unspecified severity, without behavioral disturbance, psychotic disturbance, mood disturbance, and anxiety; E78.5 Hyperlipidemia, unspecified; Y83.1 Surgical operation with implant of artificial internal device as the cause of abnormal reaction of the patient, or of later complication, without mention of misadventure at the time of the procedure; Z96.643 Presence of artificial hip joint, bilateral; E83.42 Hypomagnesemia; I11.0 Hypertensive heart disease with heart failure; I48.91 Unspecified atrial fibrillation; Z87.891 Personal history of nicotine dependence; Y92.89 Other specified places as the place of occurrence of the external cause; Z79.899 Other long term (current) drug therapy; Z68.23 Body mass index [BMI] 23.0-23.9, adult
CPT/HCPCS: 27265; 72170; 73503; 83605; 83735; 87040; 87081; 87086; 93005; 97116; 97162; G0378; G0480; J0330; J0696; J1650; J2060; J2405; J2704; J3010; J3490